=== PATIENT | female | born 1985 | race African-American/Black ===

== ENCOUNTER 2024-12-08 10:36 | Emergency (ER) | payer MEDICAID ==
[~2024-12-08] VITALS: Ht 368.3 cm; Wt 55.0 kg
[2024-12-08 10:45] VITALS: BP 102/67; TEMP 98.6; O2SAT 98
[2024-12-08 10:48] VITALS: PULSE 86; RESP 18; O2SAT 100
[2024-12-08 11:29] LABS: HEMATOCRIT. 41.2 % (36.0-48.0); HEMOGLOBIN. 13.4 g/dL (12.0-16.0); MEAN CORPUSCULAR HEMOGLOBIN 30.3 pg (28.0-32.0); MEAN CORPUSCULAR HGB CONC 32.6 g/dL (31.0-37.0); MEAN CORPUSCULAR VOLUME 92.9 fL (81.0-99.0); MEAN PLATELET VOLUME 7.8 fl (7.4-10.4); PLATELET 285 x1000/uL (130-400); RED BLOOD CELL COUNT 4.44 mill/uL (4.2-5.4); RED CELL DISTRIBUTION WIDTH 13.6 % (11.6-14.6); WHITE BLOOD COUNT 9.2 x1000/uL (4.5-11.0)
[2024-12-08 11:34] LABS: DIFFERENTIAL COMMENT 1
[2024-12-08 11:38] LABS: CARBON DIOXIDE 26 mEq/L (21-32); CHLORIDE 107 mEq/L (98-107); SODIUM 141 mEq/L (136-145)
[2024-12-08 11:39] LABS: CALCIUM 9.7 mg/dL (8.7-10.4)
[2024-12-08 11:44] LABS: CREATININE 1.1 mg/dL (0.6-1.0); GLUCOSE 116 mg/dL (70-105); UREA NITROGEN BLOOD 15 mg/dL (9-23)
[2024-12-08 11:46] LABS: ALANINE AMINOTRANSFERASE 14 IU/L (10-49); ALBUMIN 4.7 g/dL (3.2-4.8); ASPARTATE AMINOTRANSFERASE 25 IU/L (<34); BILIRUBIN DIRECT 0.2 mg/dL (<=3.0); BILIRUBIN TOTAL 0.7 mg/dL (0.1-1.0); PROTEIN TOTAL 7.4 g/dL (6.0-8.3)
[2024-12-08 13:20] LABS: PLATELET ESTIMATE NORMAL
[2024-12-08] MEDS: ONDANSETRON 4MG ODT PO PRN (14:50)
[2024-12-08] MEDS ORDERED: ONDA4TAB50 MT (14:56)
[2024-12-08 15:42] LABS: CLARITY URINE CLEAR (CLEAR); COLOR URINE YELLOW (YELLOW); GLUCOSE URINE NEGATIVE (NEGATIVE); KETONES URINE 3+ (NEGATIVE); LEUKOCYTE ESTERASE URINE NEGATIVE (NEGATIVE); NITRITE URINE NEGATIVE (NEGATIVE); OCCULT BLOOD URINE NEGATIVE (NEGATIVE); PH URINE 7.5 (4.5-8.0); PROTEIN URINE 1+ (NEGATIVE); SPECIFIC GRAVITY URINE 1.027 (1.005-1.030)
[2024-12-08 16:08] LABS: SQUAMOUS EPITHELIAL CELL URINE FEW /lpf (RARE/1+); WBC URINE 0-2 /hpf (0-2)
[2024-12-08 16:09] LABS: BACTERIA URINE 2+
== END 2024-12-08 15:18 | disposition home or self-care (01) ==
LOC: ER 10:49
DX: A08.4 Viral intestinal infection, unspecified (principal); J45.909 Unspecified asthma, uncomplicated; Z88.0 Allergy status to penicillin
CPT/HCPCS: 99283; 80076; 80048; 81003; 81025; 83690; 85025; 36415; Q0162